=== PATIENT | female | born 1985 | race Caucasian/White ===

== ENCOUNTER → 2017-09-10 | Outpatient (CLI) | payer OTHER ==
[2017-09-10 16:17] LABS: HEMATOCRIT 44.6 % (37.0-47.0); MEAN CELL VOLUME 94.7 fl (81.0-99.0); MEAN CORPUSCULAR HGB 31.8 pg (27.0-31.0); MEAN CORPUSCULAR HGB CONC 33.6 g/dl (33.0-37.0); MEAN PLATELET VOLUME 10.2 fl (9.6-12.3); RED BLOOD COUNT 4.71 10*6/uL (4.10-5.10); RED CELL DISTRI WIDTH 12.2 % (0-14.5); WHITE BLOOD COUNT 6.9 10*3/uL (4.8-10.8)
[2017-09-10 16:37] LABS: ALBUMIN 5.3 gm/dl (3.1-4.5); ALKALINE PHOSPHATASE 56 U/L (45-117); BUN 12 mg/dl (7-24); CHLORIDE 104 mmol/L (98-107); CHOLESTEROL 217 mg/dL (<200); HDL CHOLESTEROL 90 mg/dl (40-60); LDL CHOLESTEROL 118 mg/dL (9-159); LIPASE 131 U/L (73-393); POTASSIUM 3.7 mmol/L (3.5-5.1); SGOT/AST 45 IU/L (3-35); SGPT/ALT 112 U/L (12-78); SODIUM 138 mmol/L (136-145); TOTAL PROTEIN 9.8 gm/dL (6.4-8.2); TRIGLYCERIDES 47 mg/dl (<150); VLDL CHOLESTEROL 9 mg/dL (6-40)
[2017-09-10 16:43] LABS: THYROID STIM HORMONE (HS) 0.606 uIU/ml (0.358-4.75)
[2017-09-10 17:34] LABS: VITAMIN D, 25-HYDROXY 30.1 ng/mL (30-100)
[2017-09-11 07:05] LABS: HEPATITIS B SURFACE AG Negative (Negative)
[2017-09-14 11:42] LABS: HEPATITIS C VIRUS ANTIBODY >11.0 s/co (0.0-0.9)
[2017-09-15 21:04] LABS: HCV LOG10 5.831 (.); HEPATITIS C QNT 677000 IU/mL (.)
== END | disposition home or self-care (01) ==
LOC: LAB 15:41
PROVIDERS: Family Medicine
DX: L65.9 Nonscarring hair loss, unspecified (principal); R53.83 Other fatigue; R10.9 Unspecified abdominal pain; R63.4 Abnormal weight loss; M79.1 Myalgia; M25.50 Pain in unspecified joint; E74.00 Glycogen storage disease, unspecified; F41.1 Generalized anxiety disorder

== ENCOUNTER → 2017-09-15 | Outpatient (CLI) | payer OTHER ==
[2017-09-16 06:09] LABS: TOTAL PROTEIN, SERUM 8.7 g/dL (6.0-8.5)
[2017-09-16 08:07] LABS: HIV 1+2 AB + HIV1 P24 AG Non Reactive (Non Reactive)
[2017-09-17 15:07] LABS: A/G RATIO 1.2 (0.7-1.7); ALBUMIN 4.7 g/dL (2.9-4.4); ALPHA-1-GLOBULIN 0.4 g/dL (0.0-0.4); ALPHA-2-GLOBULIN 0.8 g/dL (0.4-1.0); BETA GLOBULIN 1.1 g/dL (0.7-1.3); GAMMA GLOBULIN 1.7 g/dL (0.4-1.8); M-SPIKE Not Observed g/dL (Not Observed); PE INTERPRETATION Comment: (.)
[2017-09-17 21:03] LABS: HCV LOG10 5.754 (.); HEPATITIS C QNT 568000 IU/mL (.)
[2017-09-18 17:09] LABS: ALBUMIN, URINE 33.9 % (.); ALPHA-1-GLOBULIN, URINE 6.4 % (.); ALPHA-2-GLOBULIN, URINE 14.1 % (.); BETA GLOBULIN, URINE 31.8 % (.); GAMMA GLOBULIN, URINE 13.7 % (.); M-SPIKE, % Not Observed % (Not Observed); PROTEIN,TOTAL - URINE RANDOM 27.4 mg/dL (Not Estab.)
== END | disposition home or self-care (01) ==
LOC: LAB 15:41
PROVIDERS: Family Medicine
DX: R53.83 Other fatigue (principal); R79.89 Other specified abnormal findings of blood chemistry; Z20.5 Contact with and (suspected) exposure to viral hepatitis

== ENCOUNTER → 2017-10-07 | Outpatient (CLI) | payer OTHER | END | disposition home or self-care (01) | LOC: US 09:58 | DX: B19.20 Unspecified viral hepatitis C without hepatic coma (principal) ==